=== PATIENT | female | born 1985 ===

== ENCOUNTER 2017-09-10 10:35 | Emergency (ER) | payer SELFPAY ==
[2017-09-10 10:42] VITALS: BMI 26.5
--- NOTE | 2017-09-10 12:15 | C.PDOC ---
History Of Present Illness 32yo female, presents to ED with complaints of rhinorrhea, cough, headache, back pain and generalized bodyaches for the past 4 days. She also reports associated low grade fever. No other complaints. HPI: Influenza Time Seen by Provider: 09/10/17 10:45 Chief Complaint: Flu-like Symptoms Chief Complaint (Provider): Influenza like symptoms History Per: Patient Exam Limitations: no limitations Have you had recent travel within the past 21 days to any of the following countries: [place], [place], [place] or [place]?: No Onset/Duration Of Symptoms: Days (4) Past Medical History Reviewed: Historical Data, Nursing Documentation, Vital Signs Vital Signs: Last Vital Signs Temp 97.9 F 09/10/17 10:51 Pulse 74 09/10/17 10:51 Resp 20 09/10/17 10:51 BP 118/82 09/10/17 10:51 Pulse Ox 98 09/10/17 10:51 - Medical History PMH: No Chronic Diseases Surgical History: No Surg Hx Family History: States: No Known Family Hx - Social History Hx Alcohol Use: No Hx Substance Use: No - Immunization History Hx Tetanus Toxoid Vaccination: No Hx Influenza Vaccination: No Hx Pneumococcal Vaccination: No Review Of Systems Except As Marked, All Systems Reviewed And Found Negative. Constitutional: Positive for: Fever, Other (bodyaches). Negative for: Chills ENT: Positive for: Nose Discharge, Nose Congestion Cardiovascular: Negative for: Chest Pain Respiratory: Positive for: Cough. Negative for: Shortness of Breath Musculoskeletal: Positive for: Back Pain Neurological: Positive for: Headache Physical Exam - Physical Exam Appears: Non-toxic, No Acute Distress Skin: Normal Color, Warm, Dry Head: Normacephalic Eye(s): bilateral: Normal Inspection Throat: Normal, No Erythema, No Exudate Neck: Normal ROM, Supple Chest: Symmetrical Cardiovascular: Rhythm Regular Respiratory: Normal Breath Sounds, No Wheezing Gastrointestinal/Abdominal: Normal Exam, Soft, No Tenderness Neurological/Psych: Oriented x3, Normal Speech, Normal Cognition Medical Decision Making Medical Decision Making: Impression: Influenza like illness Plan: -- Tylenol 975 mg PO -- Motrin 600 mg PO -- Tamiflu 75 mg PO Patient to be discharged home with Tamiflu; instructed to stay hydrated and follow up with PCP in 2-3 days. - ECG O2 Sat by Pulse Oximetry: 98 Disposition Counseled Patient/Family Regarding: Diagnosis, Need For Followup, Rx Given - Disposition Referrals: [facility] [Outside] Disposition: HOME/ ROUTINE Disposition Time: 12:13 Condition: STABLE Prescriptions: Ibuprofen [Motrin] 600 mg PO TID #15 tab Oseltamivir [Tamiflu] 1 cap PO BID #10 cap Instructions: Flu Forms: Gen Discharge Inst Nepalese, [facility] (Nepalese), Work Excuse - POA Present On Arrival: None - Clinical Impression Clinical Impression: Influenza, [place] - Scribe Statement The provider has reviewed the documentation as recorded by the Scribe (Renae Montiel) Provider Attestation: All medical record entries made by the Shonnaibe were at my direction and personally dictated by me. I have reviewed the chart and agree that the record accurately reflects my personal performance of the history, physical exam, medical decision making, and the department course for this patient. I have also personally directed, reviewed, and agree with the discharge instructions and disposition.
[2017-09-10 12:26] VITALS: BP 120/80; PULSE 76; RESP 18; TEMP 98
[2017-09-10 18:44] VITALS: O2SAT 98
--- NOTE | 2017-09-12 11:31 | CARD ---
APPROVED REPORT EKG Measurement Heart [id number] <Conclusion> Normal sinus rhythm Normal ECG
== END 2017-09-10 12:26 | disposition home or self-care (01) ==
LOC: C.ER 10:35
DX: J11.1 Influenza due to unidentified influenza virus with other respiratory manifestations (principal); D17.9 Benign lipomatous neoplasm, unspecified